=== PATIENT | male | born 1980 | race African-American/Black ===

== ENCOUNTER 2022-07-13 11:25 | Emergency (ER) | payer MEDICAID ==
[~2022-07-13] VITALS: Ht 165.1 cm; Wt 94.3 kg
[2022-07-13 15:23] VITALS: BP 145/87
== END 2022-07-13 15:26 | disposition left against medical advice (07) ==
LOC: ER 11:25
DX: J02.9 Acute pharyngitis, unspecified (principal); Z53.21 Procedure and treatment not carried out due to patient leaving prior to being seen by health care provider

== ENCOUNTER 2023-09-24 09:52 | Emergency (ER) | payer MEDICAID ==
[~2023-09-24] VITALS: Ht 165.1 cm; Wt 92.5 kg
[2023-09-24 10:49] VITALS: BP 121/83; PULSE 85; RESP 19; TEMP 98.1; O2SAT 95
[2023-09-24] MEDS ORDERED: DULA0.5I SC (10:50)
[2023-09-24] MEDS ORDERED: CEPH500C PO (10:50)
== END 2023-09-24 11:01 | disposition home or self-care (01) ==
LOC: ER 09:52
DX: S30.860A Insect bite (nonvenomous) of lower back and pelvis, initial encounter (principal); E11.9 Type 2 diabetes mellitus without complications; Z76.0 Encounter for issue of repeat prescription; Z79.899 Other long term (current) drug therapy; W57.XXXA Bitten or stung by nonvenomous insect and other nonvenomous arthropods, initial encounter; Y93.89 Activity, other specified; Y92.89 Other specified places as the place of occurrence of the external cause; Y99.8 Other external cause status